=== PATIENT | male | born 1950 | race Caucasian/White ===

== ENCOUNTER → 2019-01-24 | Outpatient (CLI) | payer OTHER ==
[2014-05-20 01:00] VITALS: BP 136/88
--- NOTE | 2019-01-24 11:29 | RAD ---
EXAM: Left lower extremity venous Doppler. HISTORY: Bilateral lower extremity pain/swelling. Prior deep venous thrombosis. COMPARISON: None. FINDINGS: Grayscale and Doppler analysis of the left lower extremity deep venous system was performed with graded compression and augmentation. The common femoral, greater saphenous, superficial femoral, popliteal and calf veins were assessed. There is occlusive thrombus within the left common femoral, superficial femoral and popliteal veins. There is nonocclusive thrombus within the left posterior tibial vein. There is no deep venous thrombosis on the right through the popliteal vein. IMPRESSION: 1. Deep venous thrombosis is occlusive from the left common femoral vein to the popliteal vein and nonocclusive in the calf veins. These findings were communicated to the ordering physician by the technologist on 01/24/2019 at 11:30. Electronically signed by: Miriam Brown MD (01/24/2019 11:26 AM) [facility]
== END | disposition home or self-care (01) ==
LOC: US 10:28
PROVIDERS: ATTEND Physician Assistant Medical
DX: I82.432 Acute embolism and thrombosis of left popliteal vein (principal); I82.412 Acute embolism and thrombosis of left femoral vein; Z86.718 Personal history of other venous thrombosis and embolism
CPT/HCPCS: 93971